=== PATIENT | female | born 1965 | race Caucasian/White ===

== ENCOUNTER → 2016-07-30 | Outpatient (CLI) | payer BC ==
[2016-07-30 18:02] LABS: Basophils % (A) 1 %; CH 27.8; Eosinophils # (A) 0.2 k/uL (0-0.7); Eosinophils % (A) 3 %; HCT 41.5 % (34.0-46.0); HDW 2.49; HGB 12.8 gm/dL (11.4-16.0); Luc # (Auto) 0.08; Luc % (Auto) 1; Lymphocytes # (A) 1.3 k/uL (1.0-4.8); Lymphocytes % (A) 21 %; MCHC 30.9 g/dL (31.0-37.0); MCV 87.3 fL (80.0-100.0); Mean Platelet Volume 8.2; Monocytes # (A) 0.3 k/uL (0-1.0); Monocytes % (A) 5 %; Neutrophils # (A) 4.2 k/uL (1.3-7.7); Neutrophils % (A) 69 %; RBC 4.75 m/uL (3.80-5.40); RDW 14.2 % (11.5-15.5); WBC 6.1 k/uL (3.8-10.6)
== END | disposition home or self-care (01) ==
LOC: LABPAT 17:20
PROVIDERS: ATTEND Obstetrics & Gynecology
DX: Z01.812 Encounter for preprocedural laboratory examination (principal); N92.1 Excessive and frequent menstruation with irregular cycle
CPT/HCPCS: 85025

== ENCOUNTER 2016-08-04 08:27 | Day surgery (SDC) | payer BC ==
[2016-07-30 11:25] VITALS: BMI 29.2
--- NOTE | 2016-08-01 10:50 | HP ---
DATE OF ADMISSION: 08/04/2016 HISTORY OF PRESENT ILLNESS: The patient is a 51-year-old 2, para 2-0-0-2 who presents with a history of long-standing menometrorrhagia which has been becoming worse as she has become perimenopausal. She has tried multiple different interventions to manage this with very little success. She requested more aggressive intervention with NovaSure endometrial ablation. Endometrial biopsy was performed in the office, which was benign. PAST MEDICAL HISTORY: Significant for breast cancer in 2003. PAST SURGICAL HISTORY: Significant for breast biopsy and subsequent lumpectomy and partial mastectomy. There were no anesthetic concerns. OBSTETRICAL HISTORY: 2, para 2-0-0-2 with 2 term vaginal deliveries without complications. Method of contraception has been tubal ligation. GYNECOLOGIC HISTORY: Unremarkable with no history of any infections to include STDs. FAMILY HISTORY: Noncontributory. SOCIAL HISTORY: The patient is and works as an forensic accountant for [employer]. She is a nonsmoker and denies any significant alcohol, drugs, or any other social concerns. CURRENT MEDICATIONS: None. ALLERGIES: No known drug allergies. Review of systems is confined to history of present illness. PHYSICAL EXAMINATION: Vital signs are stable. The patient is afebrile. In general, this is a well-developed, well-nourished, white female in no acute distress. Her heart has a regular rhythm and rate without murmur. Her lungs are clear to auscultation bilaterally in all patel. Her abdomen is nondistended, has normoactive bowel sounds, is soft, nontender, and without any palpable masses, hepatosplenomegaly or hernias. Her extremities are without any cyanosis, clubbing or edema and are nontender to palpation bilaterally. Pelvic examination demonstrates normal external genitalia and BUS with normal vaginal mucosa and cervix. There is no cervical motion tenderness. The uterus is 5 weeks, anteverted, mobile, nontender, and normal in shape. The adnexa are normal and nontender without mass bilaterally. ASSESSMENT AND PLAN: Menometrorrhagia: We have discussed and actually tried a number of different interventions and the patient has opted to proceed with NovaSure endometrial ablation. Risks and complications of the procedure were discussed at length, including risks for bleeding, bleeding transfusion, infection, and injury to local structures to specifically include uterine perforation, Asherman syndrome, and potential for hematometra. She has understood all these risks and has agreed to proceed. At this time, we are scheduled for diagnostic hysteroscopy with NovaSure endometrial ablation on the morning of August 04, 2016.
[~2016-08-04 08:27] MED LIST: DEXAMETHASONE SOD PHOSPHATE 10 MG/ML 1 ML VIAL IV ONE; FAMOTIDINE 20 MG/2 ML VIAL IV PRN; HYDROmorphone 1 MG/ML 1 ML SYRINGE IVP PRN; LACTATED RINGERS 1,000 ML IV SCH; LIDOCAINE 1% 20 ML VIAL (10MG/ML) FOR IV START INTRADERMA PRN; MIDAZOLAM 2 MG/2 ML VIAL IV PRN; Pre Op ABX Message 1 EACH MISC MISCELLANE ONE; SCOPOLAMINE 1.5MG/72HR PATCH TRANSDERM ONE
[2016-08-04] MEDS ORDERED: ONDANSETRON 4 MG/2 ML VIAL IVP ONE (09:06)
[2016-08-04] MEDS ORDERED: MIDAZOLAM 2 MG/2 ML VIAL ONE (09:46)
[2016-08-04] MEDS ORDERED: LIDOCAINE 1% INJ 10MG/ML (20 ML MDV) ONE (09:46)
[2016-08-04] MEDS ORDERED: fentaNYL (PF) 50 MCG/ML 2 ML AMP ONE (09:46)
[2016-08-04] MEDS ORDERED: PROPOFOL 10 MG/ML 20 ML VIAL IV ONE (09:46)
[2016-08-04] MEDS ORDERED: ePHEDrine 50 MG/ML 1 ML AMP ONE (09:46)
[2016-08-04] MEDS ORDERED: SIMETHICONE 80 MG CHEWABLE PO PRN (09:50)
[2016-08-04] MEDS ORDERED: METOCLOPRAMIDE 5 MG/ML 2 ML VIAL IVP PRN (09:50)
[2016-08-04] MEDS ORDERED: KETOROLAC 30 MG/ML 1 ML VIAL IVP PRN (09:50)
[2016-08-04] MEDS ORDERED: Acetaminophen-Codeine 300-30mg TAB PO PRN ×2 (09:50)
[2016-08-04] MEDS ORDERED: diphenhydrAMINE 50 MG/ML 1 ML VIAL IVP PRN (09:50)
[2016-08-04] MEDS ORDERED: ONDANSETRON 4 MG/2 ML VIAL IVP PRN (09:50)
[2016-08-04] MEDS ORDERED: LACTATED RINGERS 1,000 ML IV SCH (10:00)
--- NOTE | 2016-08-04 10:19 | P.OP ---
Date of Procedure: 08/04/16 Preoperative Diagnosis: #1. Menometrorrhagia Postoperative Diagnosis: Same Procedure(s) Performed: #1. Diagnostic hysteroscopy #2. NovaSure endometrial ablation #3. Incision and drainage of mucus filled cyst, anterior lip of cervix Anesthesia: other (Gen. by facemask) Surgeon: Fredrick Nash Estimated Blood Loss (ml): 5 IV fluids (ml): 350 Urine output (ml): 40 Pathology: none sent Condition: stable Disposition: PACU Operative Findings: Preoperative pelvic examination demonstrated a roughly 5 week anteverted mobile normal shaped uterus with normal adnexa bilaterally. Intraoperatively, there was noted to be a firm structure at the cervicovaginal junction on the left anterior cervical lip. The cervix sounded to 3.5 cm while uterus sounded to approximately 9 cm. The hysteroscopic view of the uterus demonstrated some shaggy endometrium but no evidence of polypoid structures nor any fibroids. The bilateral tubal ostia were seen. The settings for the NovaSure tool where a length of 5.5 cm, a width of 4.7 cm, and a total power 142 W. The total run time was 79 seconds after which time the base unit read "procedure complete." The postprocedural result appeared to be excellent. The patient is a potential candidate for vaginal hysterectomy should it become necessary. The firm 8 mm lesion on the anterior lip of the cervix at the cervicovaginal junction was opened sharply with a scalpel and discovered to be a simple mucous containing cysts. There was therefore drained and left alone. Description of Procedure: The patient was prepped and draped in usual fashion after general anesthesia was administered by the anesthesiologist. A weighted speculum was placed and the anterior lip of the cervix was grasped with a single-tooth tenaculum. The uterine sound was placed with the cervical and uterine measurements as noted above. The cervix was serially dilated to admit the diagnostic hysteroscope which was placed the findings as noted above. Once adequate hysteroscopy had been carried out, the scope was set aside and further dilation carried out to admit the NovaSure tool. The tool was placed into the endometrial cavity and seated well. The cervical flange was applied to the cervix and the cavity check was attempted and passed without difficulty. The tool was enabled and the run was started with the settings as noted above. A total run time of 79 seconds was carried out after which time the base unit read "procedure complete. " The tool was closed, removed, and discarded. The diagnostic scope was then replaced with an excellent result as noted above. All instrumentation was then removed aside from the single-tooth tenaculum which was utilized to identify the firm structure at the cervicovaginal junction on the left anterior cervix. An 11 blade scalpel was then utilized to puncture it in its midline at which time mucus was noted. It was then simply drained and left alone as it was not bleeding. Allis her mentation was removed and estimated blood loss for the entire case was approximate 5 mL or less. There are no complications. All sponge, and straight, needle counts are correct. The patient tolerated the procedure well and proceeded to the recovery room in stable condition.
[2016-08-04 10:33] VITALS: TEMP 97.8
[2016-08-04 11:13] VITALS: RESP 18
[2016-08-04 11:38] VITALS: BP 128/89; PULSE 69
== END 2016-08-04 12:01 | disposition home or self-care (01) ==
LOC: OR 08:27
PROVIDERS: ATTEND Obstetrics & Gynecology
DX: N92.1 Excessive and frequent menstruation with irregular cycle (principal)
CPT/HCPCS: 58563; J2250; J1100; J2405; J2001; J3010; J1885; J2704; 81025

== ENCOUNTER → 2017-02-12 | Outpatient (CLI) | payer BC ==
--- NOTE | 2017-02-12 07:36 | MM ---
Reason for exam: additional evaluation requested from prior study. Last mammogram was performed 1 year and 3 months ago. History: Patient has history of breast cancer at age 38. Family history of breast cancer in mother at age 55. Benign MG stereo VAD BX RT of the right breast, February 28, 2014. Benign US right guided VAD of the right breast, December 06, 2009. Malignant stereotactic core biopsy of the left breast, August 17, 2003. Lumpectomy of the left breast, 2003. Radiation therapy of the left breast, 2003. Core biopsy of the left breast. 2 excisional biopsies of the left breast. Excisional biopsy of the right breast. Lumpectomy of the left breast. Radiation therapy of the left breast. Took hormonal contraceptives for 6 years beginning at age 18. Took tamoxifen for 5 years beginning at age 38. Physical Findings: Nurse did not find any significant physical abnormalities on exam. MG Diagnostic Mammo w CAD [facility] Bilateral CC and MLO view(s) were taken. Prior study comparison: November 02, 2015, bilateral MG screening mammo w CAD. September 07, 2014, bilateral MG diagnostic mammo w CAD [facility]. The breast tissue is heterogeneously dense. This may lower the sensitivity of mammography. Stable previously sampled calcifications in the upper outer quadrant right breast. Stable post lumpectomy changes in the left breast. No significant new findings when compared with previous films. These results were verbally communicated with the patient and result sheet given to the patient on 02/12/17. ASSESSMENT: Benign, BI-RAD 2 RECOMMENDATION: Follow-up diagnostic mammogram of both breasts in 1 year.
== END | disposition home or self-care (01) ==
LOC: RADMAMWWP 06:56
PROVIDERS: ATTEND Obstetrics & Gynecology
DX: Z08 Encounter for follow-up examination after completed treatment for malignant neoplasm (principal); Z85.3 Personal history of malignant neoplasm of breast

== ENCOUNTER → 2018-03-15 | Outpatient (CLI) | payer BC ==
--- NOTE | 2018-03-15 09:55 | MM ---
Reason for exam: additional evaluation requested from prior study. Last mammogram was performed 1 year and 1 month ago. History: Patient has history of breast cancer at age 38. Family history of breast cancer in mother at age 55. Benign MG stereo VAD BX RT of the right breast, February 28, 2014. Benign US right guided VAD of the right breast, December 06, 2009. Malignant stereotactic core biopsy of the left breast, August 17, 2003. Lumpectomy of the left breast, 2003. Radiation therapy of the left breast, 2003. Core biopsy of the left breast. 2 excisional biopsies of the left breast. Excisional biopsy of the right breast. Lumpectomy of the left breast. Radiation therapy of the left breast. Took hormonal contraceptives for 6 years beginning at age 18. Took tamoxifen for 5 years beginning at age 38. Physical Findings: Nurse did not find any significant physical abnormalities on exam. MG 3D Diag Mammo W/Cad [facility] Bilateral CC and MLO view(s) were taken. Prior study comparison: February 12, 2017, bilateral MG diagnostic mammo w CAD [facility]. November 02, 2015, bilateral MG screening mammo w CAD. The breast tissue is heterogeneously dense. This may lower the sensitivity of mammography. Finding: Architectural distortion in the upper outer quadrant, posterior position of the left breast consistent with known lumpectomy. Previous mammotome biopsy in the right breast x 2. There is no discrete abnormality. These results were verbally communicated with the patient and result sheet given to the patient on 03/15/18. ASSESSMENT: Benign, BI-RAD 2 RECOMMENDATION: Follow-up diagnostic mammogram of both breasts in 1 year.
== END | disposition home or self-care (01) ==
LOC: RADMAMWWP 08:03
PROVIDERS: ATTEND Obstetrics & Gynecology
DX: Z08 Encounter for follow-up examination after completed treatment for malignant neoplasm (principal); Z85.3 Personal history of malignant neoplasm of breast
CPT/HCPCS: 77062; 77066

== ENCOUNTER → 2018-09-30 | Outpatient (CLI) | payer BC ==
--- NOTE | 2018-09-30 12:34 | XR ---
Abdomen HISTORY: Right-sided kidney stones, pain Frontal view of the abdomen submitted and correlated to prior abdomen dated 12/06/2009 There is a calcific density at the lower pole left kidney measuring approximately 8 to [address] dimension. There may be some punctate calcifications immediately adjacent. Right kidney is obscure d by overlying bowel gas. There are multiple calcifications seen within the pelvis which may be vascu lar, bone mineralization is maintained. Lung bases not included on exam. No pneumoperitoneum or bowel obstruction. IMPRESSION: Left-sided nephrolithiasis.
== END | disposition home or self-care (01) ==
LOC: RADXRMAIN 09:37
PROVIDERS: ATTEND Urology
DX: N20.0 Calculus of kidney (principal)
CPT/HCPCS: 74018

== ENCOUNTER → 2018-10-12 | Outpatient (CLI) | payer BC ==
--- NOTE | 2018-10-12 17:19 | XR ---
EXAMINATION TYPE: XR IVP DATE OF EXAM: 10/12/2018 COMPARISON: Radiograph 09/30/2018. HISTORY: 53-year-old female left renal stone, calculus of ureter. Per the technologist, patient's out side CT reported a distal right ureteral calculus and an 8 to 9 mm left renal calculus. TECHNIQUE: Following intravenous administration of 100 mL Isovue-370, multiple spot images are obtain ed. Findings: The preliminary film of the abdomen reveals multiple pelvic phleboliths. The elongated calcification within the right side of the pelvis measuring 1.1 x 0.4 cm shows some sli ght inferior migration as compared to 09/30/2018 and may correspond to the patient's ureteral calculus . Additionally, an 8 mm left lower pole renal calculus is demonstrated. Following intravenous administration of contrast material, sequential films of the abdomen were obtai connie. There is prompt and symmetrical visualization of the kidneys on the nephrographic phase and contrast progression into the bilateral renal collecting systems. On this one minute film, there is evidence of mild right-sided hydronephrosis and slight asymmetric d elay in passage of contrast into the ureter as compared to the contralateral side. Subsequent images show asymmetric right hydroureter as well. The ovoid calcification mentioned above seems to localize to the region of the distalmost right urete r. Progressive filling of the bladder without suspicious filling defects seen. On the post void images, there is some decompression of the right renal collecting system which remai ns slightly asymmetrically dilated compared to the left. IMPRESSION: 1. An ovoid 1.1 x 0.4 cm calcification in the right side of the pelvis shows slight inferior migratio n as compared to 09/30/2018 and projects at the distal right ureter on the urographic images. 2. This is suspected to represent a partially obstructive calculus as there is mild right-sided hydro ureteronephrosis and only minimal delay in excretion but relatively symmetric nephrograms. The hydrou reteronephrosis shows some improvement on the postvoid images.
== END | disposition home or self-care (01) ==
LOC: RADFLMAIN 08:51
PROVIDERS: ATTEND Urology
DX: N13.2 Hydronephrosis with renal and ureteral calculous obstruction (principal)
CPT/HCPCS: 74400; Q9967

== ENCOUNTER → 2018-12-09 | Outpatient (CLI) | payer BC ==
--- NOTE | 2018-12-09 08:10 | MM ---
Reason for exam: clinical finding. Last mammogram was performed 9 months ago. History: Patient has history of breast cancer at age 38. Family history of breast cancer in mother at age 55. Benign MG stereo VAD BX RT of the right breast, February 28, 2014. Benign US right guided VAD of the right breast, December 06, 2009. Malignant stereotactic core biopsy of the left breast, August 17, 2003. Lumpectomy of the left breast, 2003. Radiation therapy of the left breast, 2003. Core biopsy of the left breast. 2 excisional biopsies of the left breast. Excisional biopsy of the right breast. Lumpectomy of the left breast. Radiation therapy of the left breast. Took hormonal contraceptives for 6 years beginning at age 18. Took tamoxifen for 5 years beginning at age 38. Physical Findings: Nurse did not find any significant physical abnormalities on exam. MG Diagnostic Mammo LT w CAD CC and MLO view(s) were taken of the left breast. Prior study comparison: March 15, 2018, bilateral MG 3d diag mammo w/cad [facility]. February 12, 2017, bilateral MG diagnostic mammo w CAD [facility]. There are scattered fibroglandular densities. Stable post surgical and post therapy change in the left breast. No significant new findings when compared with previous films. These results were verbally communicated with the patient and result sheet given to the patient on 12/09/18. ASSESSMENT: Benign, BI-RAD 2 RECOMMENDATION: Follow-up diagnostic mammogram of both breasts in 3 months. Back on schedule.
== END | disposition home or self-care (01) ==
LOC: RADMAMWWP 06:55
PROVIDERS: ATTEND Obstetrics & Gynecology
DX: S20.02XA Contusion of left breast, initial encounter (principal); L53.9 Erythematous condition, unspecified
CPT/HCPCS: 77065

== ENCOUNTER → 2019-04-13 | Outpatient (CLI) | payer BC ==
--- NOTE | 2019-04-13 10:00 | MM ---
Reason for exam: additional evaluation requested from prior study. Last mammogram was performed 4 months ago. History: Patient has history of breast cancer at age 38. Family history of breast cancer in mother at age 55. Benign MG stereo VAD BX RT of the right breast, February 28, 2014. Benign US right guided VAD of the right breast, December 06, 2009. Malignant stereotactic core biopsy of the left breast, August 17, 2003. Lumpectomy of the left breast, 2003. Radiation therapy of the left breast, 2003. Core biopsy of the left breast. 2 excisional biopsies of the left breast. Excisional biopsy of the right breast. Lumpectomy of the left breast. Radiation therapy of the left breast. Took hormonal contraceptives for 6 years beginning at age 18. Took tamoxifen for 5 years beginning at age 38. Physical Findings: Nurse did not find any significant physical abnormalities on exam. MG Diagnostic Mammo w CAD [facility] Bilateral CC and MLO view(s) were taken. Prior study comparison: December 09, 2018, left breast MG diagnostic mammo LT w CAD. March 15, 2018, bilateral MG 3d diag mammo w/cad [facility]. The breast tissue is heterogeneously dense. This may lower the sensitivity of mammography. Previous mammotome biopsy in the right breast x 2. Post surgical changes left breast. No significant new findings when compared with previous films. These results were verbally communicated with the patient and result sheet given to the patient on 04/13/19. ASSESSMENT: Benign, BI-RAD 2 RECOMMENDATION: Routine screening mammogram of both breasts in 1 year.
== END | disposition home or self-care (01) ==
LOC: RADMAMWWP 08:11
PROVIDERS: ATTEND Obstetrics & Gynecology
DX: Z08 Encounter for follow-up examination after completed treatment for malignant neoplasm (principal); Z85.3 Personal history of malignant neoplasm of breast
CPT/HCPCS: 77066

== ENCOUNTER → 2020-04-12 | Outpatient (CLI) | payer BC ==
--- NOTE | 2020-04-12 10:49 | XR ---
EXAMINATION TYPE: XR KUB DATE OF EXAM: 04/12/2020 COMPARISON: 12/06/2009, 10/12/2018 HISTORY: Pain TECHNIQUE: One view abdominal series FINDINGS: Multiple calcifications in the pelvis are likely vascular. There appear to be stable from prior exam. Previously suspected right UVJ calcification no longer seen. Right kidney: Limited by overlying bowel content with no obvious calcifications. Left kidney: There are 3 punctate calcifications overlying the lower pole all measuring 3 mm or less. There is a oblong-shaped calcification in the region of the proximal left ureter near the UPJ measur ing a diameter of 3.2 mm. Bowel gas pattern nonspecific. Hypertrophic change of the spine..
== END | disposition home or self-care (01) ==
LOC: RADXRMAIN 10:28
PROVIDERS: ATTEND Urology
DX: N20.0 Calculus of kidney (principal)
CPT/HCPCS: 74018

== ENCOUNTER → 2020-04-30 | Outpatient (CLI) | payer BC ==
--- NOTE | 2020-04-30 11:10 | XR ---
KUB HISTORY: N 20.0, postop Frontal KUB and 2 images correlated prior KUB 04/12/2020 There are multiple calcifications again seen within the pelvis. The paraspinal calcification seen on previous exam at the L1 transverse process is not seen with certainty. There are calcifications withi n the left kidney. Bowel gas obscures detail. IMPRESSION: Suspect postprocedural findings.
== END | disposition home or self-care (01) ==
LOC: RADXRMAIN 10:17
PROVIDERS: ATTEND Urology
DX: N20.1 Calculus of ureter (principal); Z98.890 Other specified postprocedural states
CPT/HCPCS: 74018

== ENCOUNTER → 2020-05-25 | Outpatient (CLI) | payer BC ==
--- NOTE | 2020-05-29 08:35 | MM ---
Reason for exam: screening (asymptomatic). Last mammogram was performed 1 year and 1 month ago. History: Patient is postmenopausal and has history of breast cancer at age 38. Family history of breast cancer in mother at age 55. Benign MG stereo VAD BX RT of the right breast, February 28, 2014. Benign US right guided VAD of the right breast, December 06, 2009. Malignant stereotactic core biopsy of the left breast, August 17, 2003. Lumpectomy of the left breast, 2003. Radiation therapy of the left breast, 2003. Core biopsy of the left breast. 2 excisional biopsies of the left breast. Excisional biopsy of the right breast. Lumpectomy of the left breast. Radiation therapy of the left breast. Took hormonal contraceptives for 6 years beginning at age 18. Took tamoxifen for 5 years beginning at age 38. Physical Findings: A clinical breast exam by your physician is recommended on an annual basis and results should be correlated with mammographic findings. MG 3D Screening Mammo W/Cad Bilateral CC and MLO view(s) were taken. XCCL view(s) were taken of the left breast. Prior study comparison: April 13, 2019, bilateral MG diagnostic mammo w CAD [facility]. December 09, 2018, left breast MG diagnostic mammo LT w CAD. The breast tissue is heterogeneously dense. This may lower the sensitivity of mammography. Previous mammotome biopsy in the right breast x 2. There is chronic nodularity in the right breast. Post surgical and post therapy changes left breast. Regional calcifications laterally on the right are unchanged. No significant changes when compared with prior studies. ASSESSMENT: Benign, BI-RAD 2 RECOMMENDATION: Routine screening mammogram of both breasts in 1 year.
== END | disposition home or self-care (01) ==
LOC: RADMAMWWP 13:58
PROVIDERS: ATTEND Obstetrics & Gynecology
DX: Z12.31 Encounter for screening mammogram for malignant neoplasm of breast (principal); Z80.3 Family history of malignant neoplasm of breast; Z85.3 Personal history of malignant neoplasm of breast
CPT/HCPCS: 77063; 77067

== ENCOUNTER → 2021-05-27 | Outpatient (CLI) | payer BC ==
--- NOTE | 2021-05-28 09:13 | MM ---
Reason for exam: screening (asymptomatic). Last mammogram was performed 1 year ago. History: Patient is postmenopausal and has history of breast cancer at age 38. Family history of breast cancer in mother at age 55. Benign MG stereo VAD BX RT of the right breast, February 28, 2014. Benign US right guided VAD of the right breast, December 06, 2009. Malignant stereotactic core biopsy of the left breast, August 17, 2003. Lumpectomy of the left breast, 2003. Radiation therapy of the left breast, 2003. Core biopsy of the left breast. 2 excisional biopsies of the left breast. Excisional biopsy of the right breast. Lumpectomy of the left breast. Radiation therapy of the left breast. Took hormonal contraceptives for 6 years beginning at age 18. Took tamoxifen for 5 years beginning at age 38. Physical Findings: A clinical breast exam by your physician is recommended on an annual basis and results should be correlated with mammographic findings. MG 3D Screening Mammo W/Cad Bilateral CC and MLO view(s) were taken. Prior study comparison: May 25, 2020, bilateral MG 3d screening mammo w/cad. April 13, 2019, bilateral MG diagnostic mammo w CAD [facility]. March 15, 2018, bilateral MG 3d diag mammo w/cad [facility]. The breast tissue is heterogeneously dense. This may lower the sensitivity of mammography. Finding: There is decrease size, clips and architectural distortion in the upper outer quadrant, posterior position of the left breast consistent with known post treatment changes. Previous mammotome biopsy in the right breast x 2. There is no discrete abnormality. ASSESSMENT: Benign, BI-RAD 2 RECOMMENDATION: Routine screening mammogram of both breasts in 1 year.
== END | disposition home or self-care (01) ==
LOC: RADMAMWWP 09:23
PROVIDERS: ATTEND Obstetrics & Gynecology
DX: Z12.31 Encounter for screening mammogram for malignant neoplasm of breast (principal); Z80.3 Family history of malignant neoplasm of breast; Z85.3 Personal history of malignant neoplasm of breast; Z78.0 Asymptomatic menopausal state
CPT/HCPCS: 77063; 77067

== ENCOUNTER → 2022-05-28 | Outpatient (CLI) | payer BC ==
--- NOTE | 2022-05-30 08:30 | MM ---
Reason for Exam: Screening (asymptomatic). Last screening mammogram was performed 12 month(s) ago. Patient History: Menarche at age 12. First Full-Term at age 28. Postmenopausal. Patient has history of breast feeding. Breast cancer, left, age 38. Previous chest radiation therapy. Hormonal Contraceptives, starting at age 18 for 6 years. Tamoxifen for 5 years from age 38 until age 43. Lumpectomy on the Left side. Core Biopsy on the Left side. Excisional Biopsy on the Right side. Excisional Biopsy on the Left side. Excisional Biopsy on the Left side. 2003, Lumpectomy on the Left side. 02/28/2014, Benign Core Biopsy on the right side. 12/06/2009, Benign Core Biopsy on the right side. 08/17/2003, Malignant Stereotactic Core Biopsy on the left side. Radiation Therapy, left. 2003, Radiation Therapy on the left side. Mother had breast cancer, age 55. Prior Study Comparison: 04/13/2019 Bilateral Diagnostic Mammogram, [facility]. 05/25/2020 Bilateral Screening Mammogram, [facility]. 05/27/2021 Bilateral Screening Mammogram, [facility]. Tissue Density: The breast tissue is heterogeneously dense. This may lower the sensitivity of mammography. Findings: Analyzed By CAD. Postsurgical and posttreatment changes left breast. Areas of asymmetric density on the right are unchanged. 2 mitral clips redemonstrated on the right from prior biopsies. No significant change from prior exams. Overall Assessment: Benign, BI-RAD 2 Management: Screening Mammogram of both breasts in 1 year. 1. Patient should continue monthly self breast exams. 2. A clinical breast exam by your physician is recommended on an annual basis. 3. This exam should not preclude additional follow-up of suspicious palpable abnormalities. Electronically signed and approved by: Scar Rowley M.D. Radiologist
== END | disposition home or self-care (01) ==
LOC: RADMAMWWP 09:55
PROVIDERS: ATTEND Obstetrics & Gynecology
DX: Z12.31 Encounter for screening mammogram for malignant neoplasm of breast (principal); Z78.0 Asymptomatic menopausal state; Z85.3 Personal history of malignant neoplasm of breast; Z80.3 Family history of malignant neoplasm of breast; Z98.890 Other specified postprocedural states
CPT/HCPCS: 77063; 77067

== ENCOUNTER → 2023-05-29 | Outpatient (CLI) | payer BC ==
--- NOTE | 2023-06-03 11:55 | MM ---
Reason for Exam: Screening (asymptomatic). Last screening mammogram was performed 12 month(s) ago. Patient History: Menarche at age 12. First Full-Term at age 28. Postmenopausal. Patient has history of breast feeding. Breast cancer, left, age 38. Previous chest radiation therapy. Hormonal Contraceptives, starting at age 18 for 6 years. Tamoxifen for 5 years from age 38 until age 43. Lumpectomy on the Left side. Core Biopsy on the Left side. Excisional Biopsy on the Right side. Excisional Biopsy on the Left side. Excisional Biopsy on the Left side. 2003, Lumpectomy on the Left side. 02/28/2014, Benign Core Biopsy on the right side. 12/06/2009, Benign Core Biopsy on the right side. 08/17/2003, Malignant Stereotactic Core Biopsy on the left side. Radiation Therapy, left. 2003, Radiation Therapy on the left side. Mother had breast cancer, age 55. Prior Study Comparison: 05/25/2020 Bilateral Screening Mammogram, [facility]. 05/27/2021 Bilateral Screening Mammogram, [facility]. 05/28/2022 Bilateral MG 3D screening mammo w/cad, [facility]. Tissue Density: The breast tissue is heterogeneously dense. This may lower the sensitivity of mammography. Findings: Analyzed By CAD. There is no suspicious group of microcalcifications or new suspicious mass in either breast. Stable postop changes left breast. Overall Assessment: Benign, BI-RAD 2 Management: Screening Mammogram of both breasts in 1 year. . Patient should continue monthly self-breast exams. A clinical breast exam by your physician is recommended on an annual basis. This exam should not preclude additional follow-up of suspicious palpable abnormalities. Note on Philomena scores and lifetime risk: 1. A Philomena score greater than 3% is considered moderate risk. If this is the case, consider specialist referral to assess eligibility for a risk reducing agent. 2. If overall lifetime risk for the development of breast cancer is 20% or higher, the patient may qualify for future screening with alternating mammogram and breast MRI. Electronically signed and approved by: John Padilla M.D. Radiologis
== END | disposition home or self-care (01) ==
LOC: RADMAMWWP 11:12
PROVIDERS: ATTEND Obstetrics & Gynecology
DX: Z12.31 Encounter for screening mammogram for malignant neoplasm of breast (principal); Z80.3 Family history of malignant neoplasm of breast; Z85.3 Personal history of malignant neoplasm of breast; Z78.0 Asymptomatic menopausal state
CPT/HCPCS: 77063; 77067

== ENCOUNTER → 2024-05-30 | Outpatient (CLI) | payer BC ==
--- NOTE | 2024-05-31 10:47 | MM ---
Reason for Exam: Screening (asymptomatic). Last screening mammogram was performed 12 month(s) ago. Patient History: Menarche at age 12. First Full-Term at age 28. Postmenopausal. Patient has history of breast feeding. Breast cancer, left, age 38. Previous chest radiation therapy. Hormonal Contraceptives, starting at age 18 for 6 years. Tamoxifen for 5 years from age 38 until age 43. Lumpectomy on the Left side. Core Biopsy on the Left side. Excisional Biopsy on the Right side. Excisional Biopsy on the Left side. Excisional Biopsy on the Left side. 2003, Lumpectomy on the Left side. 02/28/2014, Benign Core Biopsy on the right side. 12/06/2009, Benign Core Biopsy on the right side. 08/17/2003, Malignant Stereotactic Core Biopsy on the left side. Radiation Therapy, left. 2003, Radiation Therapy on the left side. Mother had breast cancer, age 55. Prior Study Comparison: 05/27/2021 Bilateral Screening Mammogram, [facility]. 05/28/2022 Bilateral MG 3D screening mammo w/cad, [facility]. 05/29/2023 Bilateral MG 3D screening mammo w/cad, [facility]. Tissue Density: The breasts are heterogeneously dense, which may obscure small masses. Findings: Analyzed By CAD. Left breast surgical clips. Right breast biopsy clip Right breast: There is no suspicious group of microcalcifications or new suspicious mass. Left breast: There is no suspicious group of microcalcifications or new suspicious mass. Overall Assessment: Benign, BI-RAD 2 Management: Screening Mammogram of both breasts in [address] [facility] will attempt to contact patient to return for supplemental views and ultrasound if indicated. Patient should continue monthly self-breast exams. A clinical breast exam by your physician is recommended on an annual basis. This exam should not preclude additional follow-up of suspicious palpable abnormalities. Note on Philomena scores and lifetime risk: 1. A Philomena score greater than 3% is considered moderate risk. If this is the case, consider specialist referral to assess eligibility for a risk reducing agent. 2. If overall lifetime risk for the development of breast cancer is 20% or higher, the patient may qualify for future screening with alternating mammogram and breast MRI. [facility], , 05/31/2024 10:45 AM. Electronically signed and approved by: Juvenal Aaron DO
== END | disposition home or self-care (01) ==
LOC: RADMAMWWP 09:19
PROVIDERS: ATTEND Obstetrics & Gynecology
DX: Z12.31 Encounter for screening mammogram for malignant neoplasm of breast (principal); Z78.0 Asymptomatic menopausal state; Z85.3 Personal history of malignant neoplasm of breast; Z80.3 Family history of malignant neoplasm of breast; R92.333 Mammographic heterogeneous density, bilateral breasts; Z98.82 Breast implant status
CPT/HCPCS: 77063; 77067